=== PATIENT | female | born 1960 | race Caucasian/White ===

== ENCOUNTER 2024-06-13 17:33 | Inpatient (IN) | payer MEDICARE ==
[2024-06-13] MEDS ORDERED: Ondansetron ODT 4 MG TAB ONE (18:29)
[2024-06-13 18:51] LABS: #Basophils 0.03 10x3/uL (0.0-0.2); #Eosinophils Less than 0.03 10x3/uL (0.0-0.7); %Basophils 0.6 % (0.0-1.0); %Eosinophils 0.2 % (0.0-10.0); %Lymphocytes 17.9 % (21.0-51.0); %Monocytes 12.4 % (0.0-10.0); %Neutrophils 68.5 % (42.0-75.0); Hematocrit 30.2 % (36.0-47.0); Hemoglobin 9.4 g/dL (12.0-16.0); Mean Corpuscular HGB CONC 31.1 g/dL (32.0-36.0); Mean Corpuscular Hemoglobin 22.6 pg (27.0-31.0); Mean Corpuscular Volume 72.6 fL (78.0-98.0); Mean Platelet Volume 8.9 fL (7.4-10.4); Platelet Count 302 10x3/uL (130-400); Red Blood Cell (RBC) Count 4.16 mill/uL (4.20-5.40)
[2024-06-13 19:17] LABS: ALT (SGPT) Less than 7 U/L (Less than 34); AST (SGOT) 15 U/L (11-34); Albumin 3.1 g/dL (3.1-4.5); Alkaline Phosphatase 71 U/L (40-110); Anion Gap 15 mmol/L (10-20); BUN (Urea Nitrogen) 5 mg/dL (9.8-20.1); Bilirubin, Total 0.6 mg/dL (0.3-1.2); Calc. Creatinine Clearance 0 mL/min (70-130); Calcium 7.1 mg/dL (7.8-10.44); Carbon Dioxide 25 mmol/L (23-31); Chloride 100 mmol/L (98-107); Estimated GFR 95; Globulin 3.7 g/dL (2.4-3.5); Glucose 94 mg/dL (80-115); Lipase 4 U/L (8-78); Magnesium 0.8 mg/dL (1.6-2.6); Potassium 3.4 mmol/L (3.5-5.1); Protein, Total 6.8 g/dL (5.8-8.1); Sodium 137 mmol/L (136-145)
[2024-06-13 19:36] LABS: Hypochromia SLIGHT = 6-15 cells HPF (0-5); Microcytosis SLIGHT = 6-15 cells HPF (0-5); Platelet Adequacy Comment Platelets Normal; Polychromasia MODERATE = 3-4 cells HPF (0-2); RBC Morphology Within Normal Limits
[2024-06-13 20:55] LABS: Magnesium 0.7 mg/dL (1.6-2.6)
[2024-06-13 22:45] LABS: Bilirubin Negative (Negative); Blood, Urine Moderate (Negative); Glucose, Urine (Dipstick) Negative (Negative); Ketone, Urine Trace mg/dL (Negative); Leukocyte Moderate (Negative); Nitrite Positive (Negative); Protein, Urine (Dipstick) 30 mg/dL (Neg-Trace); Specific Gravity, Urine 1.025 (1.005-1.030); Urobilinogen 0.2 mg/dL (Less than 2)
[2024-06-13 22:48] LABS: Clarity Cloudy (Clear)
[2024-06-13 22:51] LABS: CAUTI Indications for Culture Dysuria,urgency,freq; RBC/HPF 0-3 HPF (0-3)
[2024-06-13 22:52] LABS: Bacteria/HPF 2+ HPF (None Seen); Urine Culture Reflex No No
[2024-06-13] MEDS ORDERED: cefTRIAXone (ROCEPHIN) 1 GM VIAL ONE (23:42)
[2024-06-13] MEDS ORDERED: Sodium Chloride 0.9% 100 ML ONE (23:42)
[2024-06-14] MEDS ORDERED: Ondansetron ODT 4 MG TAB SL PRN (01:15)
[2024-06-14] MEDS ORDERED: Ondansetron PF 4 MG/2 ML Vial IVP PRN (01:15)
[2024-06-14] MEDS ORDERED: Acetaminophen 325 MG TAB PO PRN (01:15)
[2024-06-14] MEDS ORDERED: Acetaminophen 650 MG Suppository PR PRN (01:40)
[2024-06-14] MEDS ORDERED: Calcium Carbonate 500 MG ChewTAB PO PRN (01:40)
[2024-06-14] MEDS ORDERED: Electrolyte Replacement Protocol 1 EACH FS PRN (01:41)
[2024-06-14] MEDS: Magnesium 2 GM/50 ML(in water) 2 GM in Premix 1 BAG IVPB SCH ×2 (02:39→03:18)
[2024-06-14] MEDS ORDERED: Magnesium 2 GM/50 ML BAG (IN WATER) ONE (02:46)
[2024-06-14 04:33] LABS: Magnesium 1.5 mg/dL (1.6-2.6)
[2024-06-14 04:52] LABS: ALT (SGPT) Less than 7 U/L (Less than 34); AST (SGOT) 25 U/L (11-34); Albumin 2.9 g/dL (3.1-4.5); Alkaline Phosphatase 69 U/L (40-110); Anion Gap 18 mmol/L (10-20); BUN (Urea Nitrogen) 6 mg/dL (9.8-20.1); Bilirubin, Total 0.4 mg/dL (0.3-1.2); Calc. Creatinine Clearance 0 mL/min (70-130); Calcium 6.5 mg/dL (7.8-10.44); Carbon Dioxide 19 mmol/L (23-31); Chloride 104 mmol/L (98-107); Estimated GFR 100; Globulin 4.1 g/dL (2.4-3.5); Glucose 86 mg/dL (80-115); Potassium 4.8 mmol/L (3.5-5.1); Sodium 136 mmol/L (136-145)
[2024-06-14] MEDS ORDERED: Calcium Gluc 4.6 MEQ/10 ML (100 MG/ML) ONE (06:18)
[2024-06-14] MEDS: Calcium Gluc 4.6 MEQ/10 ML (100 MG/ML) SLOW IVP SCH (06:23)
[2024-06-14 06:25] LABS: #Basophils Less than 0.03 10x3/uL (0.0-0.2); #Eosinophils Less than 0.03 10x3/uL (0.0-0.7); %Basophils 0.3 % (0.0-1.0); %Eosinophils 0.3 % (0.0-10.0); %Monocytes 13.3 % (0.0-10.0); %Neutrophils 66.8 % (42.0-75.0); Hematocrit 32.5 % (36.0-47.0); Hemoglobin 10.1 g/dL (12.0-16.0); Mean Corpuscular HGB CONC 31.1 g/dL (32.0-36.0); Mean Corpuscular Hemoglobin 22.7 pg (27.0-31.0); Mean Platelet Volume 8.9 fL (7.4-10.4); Platelet Count 297 10x3/uL (130-400); RBC Distribution Width 20.3 % (11.5-14.5); Red Blood Cell (RBC) Count 4.45 mill/uL (4.20-5.40)
[2024-06-14 07:13] LABS: Magnesium 2.1 mg/dL (1.6-2.6)
[2024-06-14 08:24] VITALS: BMI 29.0
[2024-06-14] MEDS ORDERED: Electrolyte Replacement Protocol FS PRN (08:30)
[2024-06-14] MEDS: Escitalopram Oxalate 20 mg Tablet PO SCH ×2 (09:27→20:06)
[2024-06-14] MEDS: Pantoprazole 40 MG DR.TAB PO SCH ×2 (09:27→20:05)
[2024-06-14] MEDS: Atorvastatin Calcium 40 MG TAB PO SCH (20:05)
[2024-06-15 05:24] LABS: Hematocrit 27.4 % (36.0-47.0); Hemoglobin 8.3 g/dL (12.0-16.0); Mean Corpuscular HGB CONC 30.3 g/dL (32.0-36.0); Mean Corpuscular Hemoglobin 22.4 pg (27.0-31.0); Mean Corpuscular Volume 74.1 fL (78.0-98.0); Mean Platelet Volume 8.7 fL (7.4-10.4); Platelet Count 259 10x3/uL (130-400); RBC Distribution Width 20.2 % (11.5-14.5)
[2024-06-15 05:53] LABS: Phosphorus 2.5 mg/dL (2.5-4.5)
[2024-06-15 05:54] LABS: Anion Gap 11 mmol/L (10-20); BUN (Urea Nitrogen) 4 mg/dL (9.8-20.1); Calc. Creatinine Clearance 123 mL/min (70-130); Carbon Dioxide 23 mmol/L (23-31); Chloride 107 mmol/L (98-107); Estimated GFR 100; Glucose 106 mg/dL (80-115); Magnesium 1.9 mg/dL (1.6-2.6); Potassium 3.4 mmol/L (3.5-5.1); Sodium 138 mmol/L (136-145)
[2024-06-15] MEDS: Potassium Chloride 20 MEQ TAB PO SCH (09:37)
[2024-06-15] MEDS: dilTIAZem 25 MG/5 ML VIAL SLOW IVP SCH (13:24)
[2024-06-15] MEDS: cefTRIAXone\\ROCEPHIN 1 GM in Sodium Chloride 0.9% 100 ML IVPB SCH (15:48)
[2024-06-15] MEDS: Apixaban 5 MG TAB PO SCH (20:15)
[2024-06-15] MEDS: Acetaminophen 325 MG TAB PO PRN (20:15)
[2024-06-15] MEDS: Gabapentin 300 MG CAP PO SCH (20:57)
[2024-06-16 06:38] LABS: Anion Gap 11 mmol/L (10-20); BUN (Urea Nitrogen) Less than 4 mg/dL (9.8-20.1); Calc. Creatinine Clearance 142 mL/min (70-130); Calcium 7.5 mg/dL (7.8-10.44); Carbon Dioxide 22 mmol/L (23-31); Chloride 107 mmol/L (98-107); Estimated GFR 102; Glucose 89 mg/dL (80-115); Magnesium 1.7 mg/dL (1.6-2.6); Potassium 3.8 mmol/L (3.5-5.1); Sodium 136 mmol/L (136-145)
[2024-06-16] MEDS: Metoprolol Succinate XL 50 MG ER.TAB PO SCH (09:19)
[2024-06-16] MEDS: Magnesium 2 GM/50 ML(in water) 2 GM in Premix 1 BAG IVPB SCH (09:19)
[2024-06-16 12:36] LABS: Campy jejuni + coli by PCR Negative (Negative); STEC Shiga Toxin 1+2 Negative (Negative); Salmonella spp. by PCR Negative (Negative); Shigella spp + EIEC by PCR Negative (Negative)
[2024-06-17 08:49] VITALS: BP 120/75; TEMP 98
== END 2024-06-17 12:26 | disposition home or self-care (01) | DRG 641 ==
LOC: ERS 17:33 → ERHOLD 06-14 00:53 → OBS 06-14 14:11 → OBSVTOIN 06-15 13:52
PROVIDERS: ADMIT Student in an Organized Health Care Education/Training Program; ATTEND Internal Medicine
DX: E83.42 Hypomagnesemia (principal); N39.0 Urinary tract infection, site not specified; A08.4 Viral intestinal infection, unspecified; E83.51 Hypocalcemia; D63.8 Anemia in other chronic diseases classified elsewhere; E87.6 Hypokalemia; I48.91 Unspecified atrial fibrillation; E78.00 Pure hypercholesterolemia, unspecified; F41.9 Anxiety disorder, unspecified; F32.A Depression, unspecified; R82.71 Bacteriuria; Z98.49 Cataract extraction status, unspecified eye; Z98.890 Other specified postprocedural states; Z79.899 Other long term (current) drug therapy
CPT/HCPCS: 36415; 80048; 80053; 81001; 83690; 83735; 84100; 85025; 85027; 87077; 87086; 87186; 87428; 87505; 93005; 93010; 96365; 96366; 96375; G0378; J0612; J0696; J3475; Q0162